=== PATIENT | female | born 1930 | race Caucasian/White ===

== ENCOUNTER 2017-02-21 21:07 | Inpatient (IN) | payer MEDICARE, OTHER ==
[~2017-02-21 21:07] MED LIST: ALPRAZOLAM0.25 MG PO; CALCIUM 600 +1 EACH PO; DELTASONE DPS1 MG PO; DILTIAZEM ER240 M1 PO; DULERA 200/58.8 GM IH; DUONEB DPS3 ML IH; GABAPENTIN300 MG PO; HYDROCODON-ACE1 EAC4 PO; KLOR-CON M2020 ME1 PO; LASIX DPS80 MG PO; LEVAQUIN500 MG PO; MAALOX DPS30 ML PO; MUCINEX600 MG PO; PRESERVISION L1 EACH PO; PROAIR RESPICL90 MCG IH; PROTONIX40 MG PO; PROVENTIL HFA6.7 GM IH; ROBITUSSIN AC D30 ML PO; SURFAK DPS240 MG PO; SYNTHROID100 MCG PO; TYLENOL DPS325 MG PO
[2017-02-25] MEDS ORDERED: CARDIZEM CD240 M1 PO (07:17)
[2017-02-25] MEDS ORDERED: FOLVITE-DPS1 MG PO (07:18)
[2017-02-25] MEDS ORDERED: MIRALAX PACKET17 GM PO (07:19)
[2017-02-25] MEDS ORDERED: THERAPEUTIC MUL1 TAB PO (07:20)
[2017-02-25] MEDS ORDERED: NICODERM CQ1 EAC1 TP (07:22)
[2017-02-25] MEDS ORDERED: LIDODERM PATCH TP (07:25)
[2017-02-25] MEDS ORDERED: COLACE-DPS100 MG PO (07:26)
== END 2017-02-24 12:00 | DRG 552 ==
DX: S32.10XA Unspecified fracture of sacrum, initial encounter for closed fracture (principal); J96.11 Chronic respiratory failure with hypoxia; Z99.81 Dependence on supplemental oxygen; J44.9 Chronic obstructive pulmonary disease, unspecified; W19.XXXA Unspecified fall, initial encounter; F17.210 Nicotine dependence, cigarettes, uncomplicated; K59.00 Constipation, unspecified; E03.9 Hypothyroidism, unspecified; M81.0 Age-related osteoporosis without current pathological fracture; D72.829 Elevated white blood cell count, unspecified; D64.9 Anemia, unspecified; G89.29 Other chronic pain; I10 Essential (primary) hypertension; Z72.89 Other problems related to lifestyle